=== PATIENT | male | born 1990 | race Caucasian/White ===

== ENCOUNTER 2019-08-17 21:09 | Emergency (ER) | payer OTHER ==
[~2019-08-17] VITALS: Ht 177.8 cm; Wt 81.5 kg
--- NOTE | 2019-08-17 22:53 | NUR ---
PT TO TRIAGE, VS RECHECK. PA AT HIS SIDE FOR EVAL
[2019-08-17 22:54] VITALS: BP 127/77
[2019-08-17] MEDS ORDERED: LIDOCAINE 1%-EPI 1:100K, 20ML ONE (22:59)
[2019-08-17] MEDS ORDERED: LIDOCAINE 1%-EPI 1:100K, 20ML INFIL ONE (23:00)
--- NOTE | 2019-08-17 23:01 | NUR ---
[employer] AT PT'S SIDE FOR WOUND CLEANING
== END 2019-08-17 23:10 | disposition home or self-care (01) ==
LOC: ED 22:45
DX: S01.01XA Laceration without foreign body of scalp, initial encounter (principal); S09.90XA Unspecified injury of head, initial encounter; W18.30XA Fall on same level, unspecified, initial encounter; Y93.89 Activity, other specified; Y92.69 Other specified industrial and construction area as the place of occurrence of the external cause; Y99.8 Other external cause status
CPT/HCPCS: 12032; 99284